=== PATIENT | female | born 2000 | race Hispanic/Latino ===

== ENCOUNTER 2020-07-04 00:48 | Emergency (ER) | payer SELFPAY ==
[2020-07-04] MEDS ORDERED: Acetaminophen 500 MG TAB ONE (01:45)
[2020-07-04] MEDS ORDERED: Ondansetron PF 4 MG/2 ML Vial ONE (01:45)
[2020-07-04 02:48] LABS: #Eosinphils 0.2 thou/uL (0.0-0.7); #Lymphocytes 0.9 thou/uL (1.20-3.40); #Monocytes 0.8 thou/uL (0.11-0.59); #Neutrophils 12.6 thou/uL (1.40-6.50); %Basophils 0.2 % (0.0-1.0); %Eosinophils 1.2 % (0.0-10.0); %Lymphocytes 5.9 % (28.0-48.0); %Monocytes 5.6 % (0.0-4.0); %Neutrophils 87.2 % (31.0-61.0); Hemoglobin 12.5 g/dL (12.0-16.0); Mean Corpuscular HGB CONC 35.2 g/dL (32.0-36.0); Mean Corpuscular Hemoglobin 30.3 pg (25.0-35.0); Mean Platelet Volume 7.5 fL (7.4-10.4); Platelet Count 349 thou/uL (130-400); RBC Distribution Width 11.8 % (11.5-14.5); Red Blood Cell (RBC) Count 4.11 mill/uL (4.00-5.20); White Blood Cell (WBC) Count 14.5 thou/uL (4.8-10.8)
[2020-07-04 02:52] LABS: Bacteria/HPF 4+ HPF (None Seen); Bilirubin Negative (Negative); Blood, Urine 2+ (Negative); Clarity Turbid (Clear); Glucose, Urine (Dipstick) Normal (Negative); Ketone, Urine 40 mg/dL (Negative); Leukocyte 500 Leu/uL (Negative); Nitrite Negative (Negative); Protein, Urine (Dipstick) 70 mg/dL (Neg-Trace); RBC/HPF 21-50 HPF (0-3); Specific Gravity, Urine 1.011 (1.002-1.036); WBC/HPF Greater than 50 HPF (0-3); pH, Urine 7.5 (5.0-9.0)
[2020-07-04 03:10] LABS: ALT (SGPT) 68 U/L (8-55); AST (SGOT) 32 U/L (5-34); Albumin 4.6 g/dL (3.5-5.0); Alkaline Phosphatase 75 U/L (40-100); Anion Gap 16 mmol/L (10-20); BUN (Urea Nitrogen) 5 mg/dL (7.0-18.7); Bilirubin, Total 0.5 mg/dL (0.2-1.2); Calc. Creatinine Clearance 0 mL/min (70-130); Calcium 9.8 mg/dL (7.8-10.44); Carbon Dioxide 22 mmol/L (22-29); Chloride 101 mmol/L (98-107); Estimated GFR-MDRD Greater than 90; Globulin 3.2 g/dL (2.4-3.5); Glucose 88 mg/dL (70-105); Lipase 7 U/L (8-78); Potassium 3.7 mmol/L (3.5-5.1); Protein, Total 7.8 g/dL (6.0-8.3); Sodium 135 mmol/L (136-145)
--- NOTE | 2020-07-04 08:59 | ULT ---
PRELIMINARY REPORT/[facility]/EMERGENCY AFTER HOURS PROCEDURE: EXAM: US Obstetrical, Complete <14 weeks CLINICAL HISTORY: HX: VAG BLEEDING AT 9WKS. SEE NOTES ON LAST IMAGE. THANKS TECHNIQUE: Transabdominal imaging of the maternal pelvis and a <14 week gestation with image document ation. COMPARISON:None provided. FINDINGS: GESTATION: An intrauterine gestation is noted with a CRL of 2.26 cm corresponding to 9 weeks 0 days a nd demonstrating a heartbeat of 168 bpm. A small kemal-gestational hemorrhage is seen. UTERUS: Unremarkable. No myometrial mass. Measures 10.1 x 6.2 x 5.8 cm CERVIX: Closed. Unremarkable. OVARIES: Unremarkable. No mass. The RIGHT side measures 1.8 x 1.4 x 3.2 cm and the LEFT side measure s 3.4 x 1.4 x 2.7 cm FREE FLUID: No free fluid. IMPRESSION: Single viable intrauterine . Small kemal-gestational hemorrhage. ELECTRONICALLY SIGNED BY: Emmett Davila MD Jul 04, 2020 2:58:53 AM CDT FINAL REPORT EMERGENT AFTER HOURS PELVIC ULTRASOUND: FINDINGS/IMPRESSION: I agree with the findings and impression given in the preliminary report per [facility]. 1. There is a live intrauterine with estimated age of 9 weeks 0 days. 2. Possible small subchorionic hemorrhage. POS: [facility]
== END 2020-07-04 03:50 | disposition home or self-care (01) ==
LOC: ERS 00:48
DX: N39.0 Urinary tract infection, site not specified (principal)
CPT/HCPCS: 76856; 80053; 81003; 81015; 83690; 84702; 85025; 86900; 86901; 93976; 96361; 96374; J2405

== ENCOUNTER 2020-07-29 10:54 | Emergency (ER) | payer SELFPAY ==
[2020-07-29] MEDS ORDERED: Ondansetron ODT 4 MG TAB ONE (11:24)
[2020-07-29] MEDS ORDERED: Acetaminophen 500 MG TAB ONE (11:24)
[2020-07-29 11:51] LABS: #Eosinphils 0.1 thou/uL (0.0-0.7); #Lymphocytes 1.4 thou/uL (1.20-3.40); #Monocytes 0.4 thou/uL (0.11-0.59); #Neutrophils 5.6 thou/uL (1.40-6.50); %Basophils 0.2 % (0.0-1.0); %Eosinophils 1.1 % (0.0-10.0); %Lymphocytes 19.3 % (28.0-48.0); %Monocytes 5.1 % (0.0-4.0); %Neutrophils 74.3 % (31.0-61.0); Mean Corpuscular HGB CONC 36.2 g/dL (32.0-36.0); Mean Corpuscular Hemoglobin 30.8 pg (25.0-35.0); Mean Corpuscular Volume 85.1 fL (78.0-98.0); Platelet Count 291 thou/uL (130-400); Red Blood Cell (RBC) Count 3.91 mill/uL (4.00-5.20); White Blood Cell (WBC) Count 7.5 thou/uL (4.8-10.8)
[2020-07-29 12:10] LABS: ALT (SGPT) 19 U/L (8-55); AST (SGOT) 22 U/L (5-34); Alkaline Phosphatase 54 U/L (40-100); Anion Gap 16 mmol/L (10-20); BUN (Urea Nitrogen) 7 mg/dL (7.0-18.7); Bilirubin, Total 0.5 mg/dL (0.2-1.2); Calc. Creatinine Clearance 0 mL/min (70-130); Calcium 9.3 mg/dL (7.8-10.44); Carbon Dioxide 20 mmol/L (22-29); Chloride 104 mmol/L (98-107); Estimated GFR-MDRD Greater than 90; Globulin 3.2 g/dL (2.4-3.5); Glucose 77 mg/dL (70-105); Lipase 11 U/L (8-78); Potassium 3.6 mmol/L (3.5-5.1); Protein, Total 7.2 g/dL (6.0-8.3); Sodium 136 mmol/L (136-145)
[2020-07-29 13:46] LABS: Bilirubin Negative (Negative); Blood, Urine Negative (Negative); Clarity Clear (Clear); Glucose, Urine (Dipstick) Normal (Negative); Ketone, Urine 150 mg/dL (Negative); Leukocyte Negative Leu/uL (Negative); Nitrite Negative (Negative); Protein, Urine (Dipstick) 10 mg/dL (Neg-Trace); Specific Gravity, Urine 1.024 (1.002-1.036); Urobilinogen Normal mg/dL (Less than 2); pH, Urine 6.5 (5.0-9.0)
--- NOTE | 2020-07-29 14:22 | ULT ---
TRANSABDOMINAL AND ENDOVAGINAL PELVIC ULTRASOUND: HISTORY: Pelvic pain. patient. Right lower quadrant pain. COMPARISON: 07/04/2020. TECHNIQUE: Transabdominal and endovaginal imaging of the pelvis is performed. Ovaries are interrogated with lopez scale, color flow, Doppler imaging and spectral wave form analysis. FINDINGS: Uterus: Solid echotexture focus in the uterine myometrium compatible with a leiomyoma measuring 3.3 x 3.4 x 3.7 cm. Uterus measurin.9 x 10.0 x 8.2 cm. Endometrium: There is evidence of a gestational sac and pole. heart tones: 165 bpm. lie: Breech. Placental location: Anterior to the left. Marginal placental tip. Follow-up imaging is recommended to exclude previa. biometry: BPD 2.2 cm, 13 weeks 4 days. Head circumference 8.30 cm, 13 weeks 4 days. Abdominal circumference 6.16 cm, 12 weeks 6 days. Femur length 1.32 cm, 13 weeks 6 days. Average age by sonography is 12 weeks 6 days. Adnexal structures: Neither ovary is appreciated. IMPRESSION: Single intrauterine gestation with heart tones. Average age by sonography is 12 weeks 4 days. Transcribed Date/Time: 07/29/2020 2:31 PM
== END 2020-07-29 16:12 | disposition home or self-care (01) ==
LOC: ERS 10:54
DX: O99.891 Other specified diseases and conditions complicating pregnancy (principal); R10.9 Unspecified abdominal pain; Z3A.12 12 weeks gestation of pregnancy
CPT/HCPCS: 36415; 76815; 80053; 81003; 83690; 85025; Q0162